=== PATIENT | female | born 2005 | race Caucasian/White ===

== ENCOUNTER 2025-04-26 16:26 | Emergency (ER) | payer OTHER ==
[~2025-04-26] VITALS: Ht 154.9 cm; Wt 58.9 kg
[2025-04-26 16:46] VITALS: O2SAT 99
[2025-04-26 18:55] LABS: BASOPHILS % 0.2 % (0.0-2.0); EOSINOPHILS % 5.3 % (0.0-5.0); HEMATOCRIT. 36.3 % (36.0-48.0); HEMOGLOBIN. 12.3 g/dL (12.0-16.0); LYMPHOCYTES % 8.2 % (20.0-50.0); MEAN PLATELET VOLUME 7.7 fl (7.4-10.4); MONOCYTES % 9.8 % (2.0-8.0); NEUTROPHILS % 76.5 % (40.0-76.0); PLATELET 289 x1000/uL (130-400); RED BLOOD CELL COUNT 4.26 mill/uL (4.2-5.4); RED CELL DISTRIBUTION WIDTH 16.1 % (11.6-14.6)
[2025-04-26] MEDS: METHOCARBAMOL 500MG TABLET PO ONE (19:02)
[2025-04-26] MEDS: ACETAMINOPHEN 325MG TABLET PO ONE (19:03)
[2025-04-26 19:06] LABS: HCG SCREEN NEGATIVE
[2025-04-26 19:07] LABS: INR 1.0
[2025-04-26 19:09] LABS: CREATININE 0.8 mg/dL (0.6-1.0); ETHANOL BLOOD < 10 mg/dL (<10); UREA NITROGEN BLOOD 11 mg/dL (9-23)
[2025-04-26] MEDS: MORPHINE SULFATE 2 MG/ML INJ (NOT FOR IM USE) IV ONE (19:12)
[2025-04-26] MEDS: ONDANSETRON HCL 4MG/2ML INJ IV ONE (19:12)
[2025-04-26 19:23] LABS: CLARITY URINE CLEAR (CLEAR); COLOR URINE YELLOW (YELLOW); GLUCOSE URINE NEGATIVE (NEGATIVE); KETONES URINE TRACE (NEGATIVE); LEUKOCYTE ESTERASE URINE NEGATIVE (NEGATIVE); NITRITE URINE NEGATIVE (NEGATIVE); OCCULT BLOOD URINE NEGATIVE (NEGATIVE); PH URINE 6.5 (4.5-8.0); PROTEIN URINE 1+ (NEGATIVE); SPECIFIC GRAVITY URINE 1.029 (1.005-1.030); UROBILINOGEN URINE 1.0 E.U./dL (0.2-1.0)
[2025-04-26 19:31] LABS: *AMPHETAMINES SCREEN URINE NEGATIVE (NEGATIVE)
[2025-04-26 19:32] LABS: *BARBITURATES SCREEN URINE NEGATIVE (NEGATIVE); *BENZODIAZEPINES SCREEN URINE NEGATIVE (NEGATIVE); *COCAINE SCREEN URINE NEGATIVE (NEGATIVE); CANNABINOID URINE SCREEN NEGATIVE (NEGATIVE); ECSTASY MDMA SCREEN URINE NEGATIVE (NEGATIVE); METHADONE URINE SCREEN NEGATIVE (NEGATIVE); OPIATES URINE SCREEN NEGATIVE (NEGATIVE); PHENCYCLIDINE URINE SCREEN NEGATIVE (NEGATIVE)
[2025-04-26 19:33] LABS: BACTERIA URINE 1+; RBC URINE 0-2 /hpf (0-2); SQUAMOUS EPITHELIAL CELL URINE 1+ /lpf (RARE/1+); WBC URINE 0-2 /hpf (0-2)
[2025-04-26] MEDS ORDERED: CYCL5TAB3 MT (21:06)
[2025-04-26] MEDS ORDERED: IBUP-2029 MT (21:06)
[2025-04-26 21:40] VITALS: BP 108/59; PULSE 86; RESP 14; TEMP 36.9; O2SAT 99
[2025-04-26] MEDS ORDERED: IOHEXOL-300 100 ML BOTTLE ONE (22:25)
== END 2025-04-26 21:58 | disposition home or self-care (01) ==
LOC: ER 16:26
DX: S30.1XXA Contusion of abdominal wall, initial encounter (principal); S09.90XA Unspecified injury of head, initial encounter; Z79.899 Other long term (current) drug therapy; V89.2XXA Person injured in unspecified motor-vehicle accident, traffic, initial encounter; Y93.89 Activity, other specified; Y92.410 Unspecified street and highway as the place of occurrence of the external cause; Y99.8 Other external cause status
CPT/HCPCS: 80305; 80048; 81003; 80320; 84703; 85025; 85610; 85730; 86850; 86900; 86901; 36415; 71045; 70450; 71260; 72125; 74177; 96374; 96375; 99285; Q9967; J2405; J2270; G0480